=== PATIENT | female | born 1950 | race Two or more races ===

== ENCOUNTER 2024-04-16 09:33 | Emergency (ER) | payer OTHER ==
[~2024-04-16] VITALS: Ht 162.6 cm; Wt 72.6 kg
[~2024-04-16 09:33] MED LIST: MAXIDE BC; TOPROL XL100 MG PO
[2024-04-16] MEDS ORDERED: NORVASC5 MG PO (09:47)
[2024-04-16] MEDS ORDERED: TOPROL XL50 M1 PO (09:47)
[2024-04-16] MEDS ORDERED: LIPITOR20 MG PO (09:47)
[2024-04-16] MEDS ORDERED: LEVOTHYROXINE25 MCG PO (09:47)
[2024-04-16] MEDS ORDERED: ZESTRIL40 M1 PO (09:47)
[2024-04-16] MEDS ORDERED: CARAFATE1 GM PO (09:48)
[2024-04-16] MEDS ORDERED: IYUZEH 0.005%1 EACH OP (09:48)
[2024-04-16] MEDS ORDERED: BARIUM SULFATE 450 ML ORAL.SUSP PO ONE (10:10)
[2024-04-16 10:28] LABS: HEMATOCRIT 37.1 % (36.0-45.00); HEMOGLOBIN 12.7 g/dL (12.0-15.00); MEAN CELL VOLUME 87.4 fL (80.00-100.00); MEAN CORPUSCULAR HEMOGLOBIN 29.9 pg (27.00-32.0); MEAN CORPUSCULAR HGB CONC 34.3 g/dl (32.0-36.0); PLATELET COUNT 225 K/uL (150-450); RED BLOOD COUNT 4.25 M/uL (4.00-6.00); RED CELL DISTRIBUTION WIDTH 14.2 % (11.5-14.5)
[2024-04-16 12:24] LABS: PH,URINE 5.5 (5.0-8.0); URINE APPEARANCE Clear; URINE BILIRRUBIN Negative (NEGATIVE); URINE BLOOD Negative; URINE COLOR Yellow; URINE GLUCOSE Negative (NEGATIVE); URINE LEUKOCYTE Negative; URINE NITRATE Negative; URINE PROTEIN Negative (NEGATIVE)
[2024-04-16 12:29] LABS: URINE EPITHELIAL CELLS 8.4 uL (0.0-38.8); URINE RBC 6.2 uL (0.0-20.8); URINE WBC 3.7 uL (0.0-23.2)
[2024-04-16 12:59] LABS: CALCIUM 9.9 mg/dL (8.5-10.1); CREATININE SERUM 0.97 mg/dL (0.55-1.02); GFR 56.14; POTASSIUM 3.99 mEq/L (3.5-5.1)
== END 2024-04-16 15:44 | disposition home or self-care (01) ==
LOC: ER 09:34
PROVIDERS: Emergency Medicine
DX: R10.9 Unspecified abdominal pain (principal); R10.2 Pelvic and perineal pain; I10 Essential (primary) hypertension; E03.8 Other specified hypothyroidism
CPT/HCPCS: 36415; 74177; 99284; Q9965

== ENCOUNTER 2025-02-01 20:16 | Emergency (ER) | payer OTHER ==
[~2025-02-01] VITALS: Ht 160 cm; Wt 72.6 kg
[~2025-02-01 20:16] MED LIST changes: +CARAFATE1 GM PO; +IYUZEH 0.005%1 EACH OP; +LEVOTHYROXINE25 MCG PO; +LIPITOR20 MG PO; +NORVASC5 MG PO; +TOPROL XL50 M1 PO; +ZESTRIL40 M1 PO
== END 2025-02-01 22:49 | disposition home or self-care (01) ==
LOC: ER 20:28
DX: I10 Essential (primary) hypertension (principal); E78.00 Pure hypercholesterolemia, unspecified; E03.8 Other specified hypothyroidism; Z85.89 Personal history of malignant neoplasm of other organs and systems